=== PATIENT | female | born 1980 | race American Indian/Alaskan Native ===

== ENCOUNTER 2018-01-19 07:02 | Day surgery (SDC) | payer BC ==
[2018-01-12 08:30] VITALS: BMI 22.1
[2018-01-19 07:50] VITALS: O2SAT 100
[2018-01-19] MEDS ORDERED: Sodium Chloride 0.9% 1,000 ML IV SCH (09:15)
[2018-01-19] MEDS ORDERED: Propofol 10 mg/ml Inj (20 ML) ONE (09:16)
[2018-01-19 12:30] VITALS: BP 115/65; PULSE 58; RESP 14; TEMP 97.4
== END 2018-01-19 11:30 | disposition home or self-care (01) ==
LOC: ENDO 07:02
PROVIDERS: ATTEND Internal Medicine Gastroenterology
DX: D12.2 Benign neoplasm of ascending colon (principal); K64.8 Other hemorrhoids; K52.9 Noninfective gastroenteritis and colitis, unspecified
CPT/HCPCS: 45380; 84703; 88305; J2001; J2704; J7040 ×2